=== PATIENT | male | born 1950 | race Caucasian/White ===

== ENCOUNTER 2019-06-12 19:50 | Emergency (ER) | payer MEDICARE ==
[~2019-06-12] VITALS: Ht 188 cm; Wt 90.9 kg
[~2019-06-12 19:50] MED LIST: ALLEGRA60 MG PO; AMBIEN10 MG PO; ATIVAN0.5 MG PO; BETA PROSTATE PO; CO Q10; FLAXSEED OIL1 CAP PO; GABAPENTIN; MECLIZINE25 MG PO; NEURONTIN600 MG PO; NIACIN1 POW; NIASPAN 500MG500 MG PO; NIFEREX-150 FOR1 CA1 PO; OMEGA 31000 MG PO; ULTRAM ER100 MG PO; VALIUM5 MG PO; ZITHROMAX500 M2 PO; ZOFRAN4 M1 PO
[2019-06-12 19:55] VITALS: TEMP 96.4
[2019-06-12 20:13] LABS: HEMATOCRIT 47.6 % (42.0-52.0); HEMOGLOBIN 15.8 g/dl (13.5-18.0); MEAN CELL VOLUME 97 fl (80.0-100.0); MEAN CORPUSCULAR HEMOGLOBIN 32 pg (27.0-31.0); MEAN CORPUSCULAR HGB CONC 33 g/dl (33.0-37.0); MEAN PLATELET VOLUME 9.8 fl (7.4-10.4); PLATELET COUNT 225 K/mm3 (130-400); RED BLOOD COUNT 4.91 M/mm3 (4.20-5.60); REDCELL DISTRIBUTION WIDTH-CV 13.5 % (11.5-14.5)
[2019-06-12 20:16] LABS: COLLECTION METHOD CLEAN CATCH
[2019-06-12 20:19] LABS: ALBUMIN 3.9 gm/dL (3.5-5.0); CALCIUM 8.3 mg/dL (8.4-10.2); CREATININE, serum 1.48 (0.66-1.25); POTASSIUM 3.8 mmol/L (3.4-5.0); TOTAL PROTEIN 6.7 gm/dL (6.4-8.2)
[2019-06-12 20:26] LABS: ARTERIAL BLD GAS TCO2 CT 22.6; ARTERIAL BLOOD GAS BASE EXCESS -13.5 (-2-2); ARTERIAL BLOOD GAS PCO2 86.8 mmHg (35-45); ARTERIAL BLOOD GAS PO2 91.1 mmHg (80-100); ARTERIAL BLOOD GAS pH 6.98 (7.35-7.45)
[2019-06-12 20:33] LABS: TROPONIN-I 0.061 ng/mL (0.000-0.035)
[2019-06-12 20:35] LABS: PH 7 (5-8); SQUAMOUS EPITHELIAL None Seen /hpf; URINE APPEARANCE Cloudy; URINE BACTERIA None Seen /hpf; URINE BILIRUBIN Negative (NEGATIVE); URINE BLOOD Negative (NEGATIVE); URINE COLOR Yellow; URINE GLUCOSE 2+ (NEGATIVE); URINE KETONE Negative (NEGATIVE); URINE LEUKOCYTE ESTERASE Negative (NEGATIVE); URINE NITRATE Negative (NEGATIVE); URINE PROTEIN(semi-quant) 2+ (NEGATIVE); URINE UROBILINOGEN Negative (NEGATIVE)
[2019-06-12 20:55] LABS: LYMPHOCYTE 49 % (20.0-51.0); NEUTROPHILS 44 % (42.0-75.2); PLATELET ESTIMATE NORMAL (NORMAL)
[2019-06-12 21:36] VITALS: BP 160/104; PULSE 121
== END 2019-06-12 21:36 | disposition short-term general hospital (02) ==
LOC: COL.ER 19:55
PROVIDERS: Emergency Medicine
DX: I46.9 Cardiac arrest, cause unspecified (principal); I49.01 Ventricular fibrillation; I10 Essential (primary) hypertension; E78.5 Hyperlipidemia, unspecified; Z87.891 Personal history of nicotine dependence
CPT/HCPCS: J0282; J2704; J3010; J7030; J7060